=== PATIENT | female | born 1990 | race Native Hawaiian/Other Pacific Islander ===

== ENCOUNTER 2016-12-03 11:15 | Inpatient (IN) | payer OTHER ==
--- NOTE | 2016-12-03 12:00 | C.PDOC ---
History Of Present Illness 26-year-old female, presents to the emergency department with complaints fever, pus draining wound of left upper arm that started as a pimple-like lesion, on , which opened, and became red and painful. Patient seen by PMD, on , who prescribed Amoxicillin which she has been taking without relief. States she developed a fever of 102(T-Max) three days ago. This morning, Temperature was 100.4F. Pt takes Motrin for pain and fever. Denies any nausea/vomiting, headaches, chills, shortness of breath, back pain, or any other associated symptoms. No other complaints at this time. Time Seen by Provider: 12/03/16 11:37 Chief Complaint (Nursing): Wound Check History Per: Patient History/Exam Limitations: no limitations Onset/Duration Of Symptoms: Days Ago Current Symptoms Are (Timing): Still Present Past Medical History Reviewed: Historical Data, Nursing Documentation, Vital Signs Vital Signs: Last Vital Signs Temp 98.8 F 12/03/16 17:39 Pulse 91 H 12/03/16 17:39 Resp 18 12/03/16 17:39 BP 124/79 12/03/16 17:39 Pulse Ox 100 12/03/16 18:04 Family History: States: No Known Family Hx Other Family History: non-contributory - Social History Hx Alcohol Use: No Hx Substance Use: No - Immunization History Hx Tetanus Toxoid Vaccination: No Hx Influenza Vaccination: No Hx Pneumococcal Vaccination: No Review Of Systems Except As Marked, All Systems Reviewed And Found Negative. Constitutional: Positive for: Fever Respiratory: Negative for: Shortness of Breath Musculoskeletal: Positive for: Arm Pain Neurological: Negative for: Weakness Physical Exam - Physical Exam Appears: Non-toxic, No Acute Distress Skin: Warm, Dry, No Rash, Other (Left upper arm: 5x6cm carbuncle w/ central opening; surrounding erythema, and warmth.) Head: Atraumatic, Normacephalic Neck: Normal ROM Chest: Symmetrical Cardiovascular: Rhythm Regular Respiratory: Normal Breath Sounds, No Accessory Muscle Use Gastrointestinal/Abdominal: Normal Exam Extremity: Normal ROM Neurological/Psych: Oriented x3 ED Course And Treatment - Laboratory Results Result Diagrams: 12/03/16 13:04 12/03/16 13:04 Lab Interpretation: Abnormal (thrombocytosis; lft elevation) O2 Sat by Pulse Oximetry: 100 Pulse Ox Interpretation: Normal Medical Decision Making Medical Decision Making: PROCEDURE: INCISION & DRAINAGE Performed by the emergency provider Indication: Abscess Location: Left upper arm Preparation: The area was prepped and draped in the usual sterile fashion and was cleansed with [place]. Local infiltration of Lidocaine 1% with Epi was used for anesthesia. Procedure: The most fluctuant portion of the abscess was incised with a #11 scalpel. Significant amount of pus was obtained. A dressing was applied by the RN Post-Procedure: On exam the abscess is notably less fluctuant. The patient tolerated the procedure well, and there were no complications. Cultured: YES Disposition Counseled Patient/Family Regarding: Studies Performed, Diagnosis - Disposition Disposition: HOSPITALIZED Disposition Time: 14:19 Condition: STABLE - POA Present On Arrival: None - Clinical Impression Clinical Impression: Carbuncle, Cellulitis, LFT elevation, Thrombocytosis - Scribe Statement The provider has reviewed the documentation as recorded by the Scribe (Mauro Yao) All medical record entries made by the Scribe were at my direction and personally dictated by me. I have reviewed the chart and agree that the record accurately reflects my personal performance of the history, physical exam, medical decision making, and the department course for this patient. I have also personally directed, reviewed, and agree with the discharge instructions and disposition. Decision To Admit - Pt Status Changed To: Hospital Disposition Of: Inpatient - Admit Certification Admit to Inpatient:: After my assessment, the patient will require hospitalization for at least two midnights. This is because of the severity of symptoms shown, intensity of services needed, and/or the medical risk in this patient being treated as an outpatient. - InPatient: Physician Admission Certification: I certify that this patient requires 2 or more midnights of care for the following reason:: FAILED ABX AT HOME FOR 1 WEEK , FEVER AT HOME, WORSENING SYMPTOMS - . Bed Request Type: Regular Admitting Physician: Jona Loaiza Patient Diagnosis: Carbuncle, Cellulitis, LFT elevation, Thrombocytosis
[2016-12-03 13:09] LABS: BASO # 0.1 K/uL (0.0-0.2); EOS # 0.2 K/uL (0.0-0.7); EOS % 1.6 % (0.0-4.0); LYMPH # 2.5 K/uL (1.0-4.3); LYMPH % 25.2 % (20.0-40.0); MEAN CELL VOLUME 88.4 fL (81.0-99.0); MEAN CORPUSCULAR HGB CONC 33.9 g/dL (33.0-37.0); MEAN PLATELET VOLUME 7.5 fL (7.2-11.7); MONO # 0.7 K/uL (0.0-0.8); MONO % 7.3 % (0.0-10.0); RED CELL DISTRIBUTION WIDTH 12.9 % (11.5-14.5); WHITE BLOOD COUNT 9.9 K/uL (4.8-10.8)
[2016-12-03 13:16] LABS: CHLORIDE 100 mmol/L (98-107); POTASSIUM 4.1 mmol/L (3.6-5.2); SODIUM 142 mmol/L (132-148)
[2016-12-03 13:18] LABS: AST/SGOT 46 U/L (14-36); BILIRUBIN,TOTAL 0.6 mg/dL (0.2-1.3); CARBON DIOXIDE 26 mmol/L (22-30); GFR AFRICAN-AMERICAN > 60
[2016-12-03 13:19] LABS: ALKALINE PHOSPHATASE 76 U/L (38-126); ALT/SGPT 70 U/L (9-52); BLOOD UREA NITROGEN 12 mg/dL (7-17); CALCIUM 10.3 mg/dl (8.6-10.4); GLUCOSE,RANDOM 102 mg/dL (65-105); TOTAL PROTEIN 9.2 g/dL (6.3-8.3)
--- NOTE | 2016-12-03 15:34 | CP.PCM.HP ---
<Nasim Hyman - Last Filed: 12/03/16 16:59> History of Present Illness - History of Present Illness History of Present Illness: " Infected pimple" HPI: Patient is a 26 year old female with no significant medical history is presents to the ED with worsening pain in her left arm for a infected pimple. She was seen by a clinic physician in [place] who prescribed her Augmentin last Sunday for an infected pimple after she popped it. She noticed that her pain worsened and there was more puss and drainage from the wound over the past several days. She came here because she said the pain was unbearable and Tylenol and Motrin was no longer effective. She was also complaining of fever the past week with the highest of 102 which she measured at home. She also say she has some nausea and 1-2 episodes of vomiting after she brushed her teeth and also a loss of appetite but no abdominal pain. She denies changes in vision , hearing, chest pain, palpitations, shortness of breath, coughing wheezing, chest tightness, dysuria, diarrhea, heart burn, depression, anxiety, fatigue, numbness tingling, muscle weakness, joint pain or swelling. PMH: see above PSH: denies FH: denies SH: Lives with , denies smoking, etoh use, or illicit druge use, is unemployed PMD: none Allergies: NKDA Present on Admission - Present on Admission Any Indicators Present on Admission: No History of DVT/PE: No History of Uncontrolled Diabetes: No Urinary Catheter: No Decubitus Ulcer Present: No Review of Systems - Review of Systems All systems: reviewed and no additional remarkable complaints except - Constitutional Constitutional: Chills, Fever. absent: Weakness - EENT Ears: absent: Dizziness - Cardiovascular Cardiovascular: absent: Chest Pain, Edema, Palpitations, Radiating Pain - Respiratory Respiratory: absent: Cough, Dyspnea, Wheezing - Gastrointestinal Gastrointestinal: Nausea, Vomiting. absent: Abdominal Pain, Constipation, Diarrhea - Genitourinary Genitourinary: absent: Dysuria - Reproductive: Female Reproductive:Female: Light Menses - Menstruation Menstruation: Light Menses - Musculoskeletal Musculoskeletal: absent: Numbness, Tingling - Integumentary Integumentary: Skin Pain Additional comments: purulent discharge - Psychiatric Psychiatric: absent: Anxiety - Endocrine Endocrine: absent: Fatigue, Palpitations - Hematologic/Lymphatic Hematologic: absent: Easy Bleeding, Easy Bruising Past Patient History - Infectious Disease Hx of Infectious Diseases: None - Past Social History Smoking Status: Never Smoked - PSYCHIATRIC Hx Substance Use: No Meds Allergies/Adverse Reactions: Allergies Allergy/AdvReac Type Severity Reaction Status Date / Time No Known Allergies Allergy Unverified 12/03/16 11:20 Physical Exam - Constitutional Appears: Non-toxic, No Acute Distress - Head Exam Head Exam: NORMAL INSPECTION - Eye Exam Eye Exam: Normal appearance, PERRL. absent: Nystagmus, Scleral icterus Pupil Exam: NORMAL ACCOMODATION - ENT Exam ENT Exam: Normal Exam - Respiratory Exam Respiratory Exam: Clear to Auscultation Bilateral. absent: Rales, Rhonchi, Wheezes - Cardiovascular Exam Cardiovascular Exam: REGULAR RHYTHM, RRR, +S1, +S2. absent: Gallop, Rubs - GI/Abdominal Exam GI & Abdominal Exam: Normal Bowel Sounds, Soft. absent: Guarding, Rebound, Tenderness - Extremities Exam Extremities exam: Positive for: normal inspection. Negative for: calf tenderness, pedal edema Additional comments: no swelling distal to infected site, she has good pulses, and no deficit in sensation. - Back Exam Back exam: NORMAL INSPECTION - Neurological Exam Neurological exam: Alert - Psychiatric Exam Psychiatric exam: Normal Affect, Normal Mood - Skin Skin Exam: Dry, Normal Color Additional comments: open wound over the left arm with a dressing over it. Results - Vital Signs Recent Vital Signs: Last Vital Signs Temp 99.4 F 12/03/16 11:17 Pulse 110 H 12/03/16 11:17 Resp 18 12/03/16 11:17 BP 135/90 12/03/16 11:17 Pulse Ox 100 12/03/16 14:19 - Labs Result Diagrams: 12/03/16 13:04 12/03/16 13:04 Assessment & Plan (1) Cellulitis Assessment and Plan: She is admitted for infection that failed outpatient antibiotics. She also had an I&D done in the ED as well as receive IV Vancomycin. We will admit her to regular floor, follow morning cbc,cmp,mag, phos, hepatitis profile, urine preg, and UA. Will also need to follow up wound culture and blood culture. 1 gm of Van daily. X:ray of the left arm to rule out foreign body and also a abdominal ultrasound because of elevated LFTs. Status: Acute (2) Elevated LFTs Assessment and Plan: Hepatitis panel and abdominal ultrasound. Status: Acute (3) Thrombophilia Assessment and Plan: Platelete count is well above 600, repeat cbc in the am. Status: Acute (4) Prophylactic measure Assessment and Plan: Heparin 5000 units SC q12h, SCDS Pepcid 20mg bid. Status: Acute <Jona Loaiza M - Last Filed: 12/03/16 17:46> Results - Vital Signs Recent Vital Signs: Last Vital Signs Temp 98.8 F 12/03/16 17:39 Pulse 91 H 12/03/16 17:39 Resp 18 12/03/16 17:39 BP 124/79 12/03/16 17:39 Pulse Ox 98 12/03/16 17:39 - Labs Result Diagrams: 12/03/16 13:04 12/03/16 13:04 Attending/Attestation - Attestation I have personally seen and examined this patient.: Yes I have fully participated in the care of the patient.: Yes I have reviewed all pertinent clinical information: Yes Notes (Text): 12/03/16 17:45 Patient was seen and examined at bedside with the resident We will start the patient on IV antibiotics for cellulitis with abscess of the arm Patient is currently on vancomycin and follow cultures Patient also has elevated the transaminases We will follow-up hepatitis profile and a liver ultrasound I discussed the plan of care with the resident and agree with the above assessment and plan by the resident.
--- NOTE | 2016-12-03 17:05 | RAD ---
Left humerus two views History: Soft tissue injury. Comparison: None available. Findings: Soft tissue swelling and reticulation seen within the lateral soft tissues at the level of the mid humerus. Mild increased radiopaque density at that level may be related to external bandage. Clinical correlation. No discrete radiopaque density noted to suggest for foreign body; however, evaluation is somewhat limited as there are some probable external bandages at that level. Clinical correlation. Left humerus demonstrates some minimal inferior subluxation of the humeral head in relationship to the bony glenoid which may be related to patient positioning. No evidence of acute displaced fracture. Impression: Soft tissue swelling and reticulation seen within the lateral soft tissues at the level of the mid humerus. Mild increased radiopaque density at that level may be related to external bandage. Clinical correlation. No discrete radiopaque density noted to suggest for foreign body; however, evaluation is somewhat limited as there are some probable external bandages at that level. Clinical correlation. Left humerus demonstrates some minimal inferior subluxation of the humeral head in relationship to the bony glenoid which may be related to patient positioning. No evidence of acute displaced fracture. Repeat study may be helpful if clinically indicated.
[2016-12-03 17:45] LABS: RBC URINE 4 /hpf (0-3); URINE BACTERIA RARE (<OCC); URINE BILIRUBIN NEGATIVE (NEGATIVE); URINE BLOOD NEGATIVE (NEGATIVE); URINE COLOR Yellow (YELLOW); URINE GLUCOSE (UA) NORMAL (Normal); URINE KETONE NEGATIVE (NEGATIVE); URINE LEUKOCYTE ESTERASE NEG Leu/uL (Negative); URINE PROTEIN NEGATIVE (NEGATIVE); URINE UROBILINOGEN NORMAL mg/dL (0.2-1.0); WBC URINE 3 /hpf (0-5)
[2016-12-04 06:15] LABS: BASO # 0.1 K/uL (0.0-0.2); BASO % 1.2 % (0.0-2.0); EOS # 0.2 K/uL (0.0-0.7); HEMATOCRIT 38.3 % (34.0-47.0); LYMPH # 3.3 K/uL (1.0-4.3); LYMPH % 31.2 % (20.0-40.0); MEAN CELL VOLUME 88.1 fL (81.0-99.0); MEAN CORPUSCULAR HEMOGLOBIN 29.9 pg (27.0-31.0); MEAN CORPUSCULAR HGB CONC 33.9 g/dL (33.0-37.0); MEAN PLATELET VOLUME 7.3 fL (7.2-11.7); MONO # 0.8 K/uL (0.0-0.8); MONO % 7.6 % (0.0-10.0); RED CELL DISTRIBUTION WIDTH 13.1 % (11.5-14.5); WHITE BLOOD COUNT 10.5 K/uL (4.8-10.8)
[2016-12-04 06:36] LABS: CHLORIDE 98 mmol/L (98-107); SODIUM 138 mmol/L (132-148)
[2016-12-04 06:38] LABS: ALB/GLOB RATIO 1.1 (1.0-2.1); ALKALINE PHOSPHATASE 75 U/L (38-126); AST/SGOT 47 U/L (14-36); BILIRUBIN,TOTAL 0.6 mg/dL (0.2-1.3); BLOOD UREA NITROGEN 14 mg/dL (7-17); CARBON DIOXIDE 26 mmol/L (22-30); GFR AFRICAN-AMERICAN > 60; TOTAL PROTEIN 8.2 g/dL (6.3-8.3)
[2016-12-04 06:39] LABS: ALT/SGPT 70 U/L (9-52); CALCIUM 9.5 mg/dl (8.6-10.4); GLUCOSE,RANDOM 105 mg/dL (65-105); MAGNESIUM 2.4 mg/dL (1.6-2.3); PHOSPHOROUS 4.9 mg/dL (2.5-4.5)
--- NOTE | 2016-12-04 10:33 | US ---
HISTORY: Elevated LFTs COMPARISON: None. TECHNIQUE: Grayscale imaging was performed. FINDINGS: LIVER: Measures 14.3 cm in length. Normal echogenicity of the liver parenchyma. No mass. No intrahepatic bile duct dilatation. GALLBLADDER: There are no gallstones. There are small polypoid nonmobile echogenic lesions along the gallbladder wall, the largest measures 6 mm. COMMON BILE DUCT: Measures 2.2 mm. No stones. No dilatation. PANCREAS: Unremarkable as visualized. No mass. No ductal dilatation. RIGHT KIDNEY: Measures 13.7 cm in length. Normal echogenicity. No calculus, mass, or hydronephrosis. AORTA: No aneurysmal dilatation. IVC: Unremarkable. OTHER FINDINGS: None . IMPRESSION: 1. Diffuse increased echogenicity in the liver may reflect hepatic steatosis however parenchymal infectious/ inflammatory etiologies cannot be entirely excluded. Clinical and laboratory correlation is advised. 2. Gallbladder polyps.
--- NOTE | 2016-12-04 11:54 | CP.PCM.PN ---
Subjective - Date & Time of Evaluation Date of Evaluation: 12/04/16 Time of Evaluation: 11:51 - Subjective Subjective: Patient seen and evaluated at bedside. Patient states that her pain and range of motion is improving. Her lesion continues to drain bloody and purulent discharge. The patient is going for an ultrasound today. She states that her appetite has been normal and she is tolerating po diet. Patient states that she has no problems urinating or passing bowel movements. The patient denies abdominal pain, diarrhea/constipation, fever/chills, chest pain, and shortness of breath. Objective - Vital Signs/Intake and Output Vital Signs (last 24 hours): Temp Pulse Resp BP Pulse Ox 98.1 F 85 20 127/85 98 12/04/16 08:17 12/04/16 08:17 12/04/16 08:17 12/04/16 08:17 12/04/16 08:17 Intake and Output: 12/04/16 12/04/16 06:59 18:59 Intake Total 540 Balance 540 - Medications Medications: Current Medications Famotidine (Pepcid) 20 mg PO BID [facility] Last Admin: 12/04/16 09:20 Dose: 20 mg Heparin Sodium (Porcine) (Heparin) 5,000 units SC Q12 [facility] Last Admin: 12/04/16 09:20 Dose: 5,000 units Vancomycin/Sodium Chloride (Vancocin) 1 gm in 200 mls @ 166.7 mls/hr IVPB Q24H [facility] Stop: 12/09/16 14:01 Ibuprofen (Motrin Tab) 400 mg PO Q6 PRN PRN Reason: Pain, severe (8-10) Ondansetron HCl (Zofran Inj) 4 mg IVP Q6H PRN PRN Reason: Nausea/Vomiting - Labs Labs: 12/04/16 06:03 12/04/16 06:03 - Constitutional Appears: Non-toxic, No Acute Distress - Head Exam Head Exam: ATRAUMATIC, NORMAL INSPECTION, NORMOCEPHALIC - Eye Exam Eye Exam: EOMI, Normal appearance, PERRL - ENT Exam ENT Exam: Mucous Membranes Moist - Respiratory Exam Respiratory Exam: Clear to Ausculation Bilateral, NORMAL BREATHING PATTERN - Cardiovascular Exam Cardiovascular Exam: +S1, +S2. absent: Tachycardia, Murmur - GI/Abdominal Exam GI & Abdominal Exam: Soft, Normal Bowel Sounds. absent: Firm, Guarding, Tenderness - Extremities Exam Extremities Exam: Full ROM, Normal Inspection. absent: Pedal Edema, Tenderness - Neurological Exam Neurological Exam: Alert, Awake, Oriented x3 - Psychiatric Exam Psychiatric exam: Normal Affect, Normal Mood - Skin Additional comments: 3cm oval indurated area of skin with central opening and surrounding erythema draining bloody/purulent discharge. Assessment and Plan - Assessment and Plan (Free Text) Assessment: (1) Cellulitis Assessment and Plan: I&D performed in ED Continue Vancomycin 1 gm IV daily. No leukocytosis, afebrile follow up wound culture and blood culture. Wound gram stain : moderate PMN WBCs and few gram positive cocci in clusters. X-ray of left humerus: Soft tissue swelling and reticulation seen within the lateral soft tissues at the level of the mid humerus. Mild increased radiopaque density at that level may be related to external bandage. No discrete radiopaque density noted to suggest for foreign body; however, evaluation is somewhat limited as there are some probable external bandages at that level. Status: Acute (2) Elevated LFTs Assessment and Plan: AST/ALT: 47/70 Hepatitis panel negative Abdominal ultrasound: 1. Diffuse increased echogenicity in the liver may reflect hepatic steatosis however parenchymal infectious/ inflammatory etiologies cannot be entirely excluded. Clinical and laboratory correlation is advised. 2. Gallbladder polyps. Status: Acute (3) Thrombophilia Assessment and Plan: Platelet count continues to be elevated, 634. Monitor Status: Acute (4) Prophylactic measure Assessment and Plan: Heparin 5000 units SC q12h, SCDS Pepcid 20mg bid.
[2016-12-04] MEDS: Vancomycin 1 gm/NS 200 ml 1 GM/200 ML BAG IVPB SCH (13:54)
[2016-12-05 06:27] LABS: BASO # 0.1 K/uL (0.0-0.2); BASO % 0.7 % (0.0-2.0); EOS # 0.2 K/uL (0.0-0.7); EOS % 2.3 % (0.0-4.0); HEMATOCRIT 36.9 % (34.0-47.0); LYMPH % 36.7 % (20.0-40.0); MEAN CELL VOLUME 88.5 fL (81.0-99.0); MEAN CORPUSCULAR HEMOGLOBIN 29.8 pg (27.0-31.0); MEAN CORPUSCULAR HGB CONC 33.7 g/dL (33.0-37.0); MEAN PLATELET VOLUME 7.5 fL (7.2-11.7); MONO # 0.7 K/uL (0.0-0.8); MONO % 6.2 % (0.0-10.0); RED CELL DISTRIBUTION WIDTH 13.1 % (11.5-14.5); WHITE BLOOD COUNT 10.9 K/uL (4.8-10.8)
[2016-12-05 06:57] LABS: CHLORIDE 98 mmol/L (98-107)
[2016-12-05 06:58] LABS: SODIUM 138 mmol/L (132-148)
[2016-12-05 07:00] LABS: AST/SGOT 46 U/L (14-36); BILIRUBIN,TOTAL 0.5 mg/dL (0.2-1.3); BLOOD UREA NITROGEN 13 mg/dL (7-17); CARBON DIOXIDE 27 mmol/L (22-30); GFR AFRICAN-AMERICAN > 60
[2016-12-05 07:01] LABS: ALKALINE PHOSPHATASE 77 U/L (38-126); ALT/SGPT 69 U/L (9-52); CALCIUM 9.3 mg/dl (8.6-10.4); GLUCOSE,RANDOM 106 mg/dL (65-105); MAGNESIUM 2.4 mg/dL (1.6-2.3)
--- NOTE | 2016-12-05 11:44 | CP.PCM.PN ---
Subjective - Date & Time of Evaluation Date of Evaluation: 12/05/16 Time of Evaluation: 11:42 - Subjective Subjective: Patient seen and examined at bedside. She states that she slept well last night and that she feels comfortable. She denies any acute complaints. Her pain is being controlled well and she has full range of motion of her shoulder joint. The lesion is still draining bloody, purulent fluid and the dressing was changed at bedside. Patient denies fever/chills, night sweats, chest pain, shortness of breath, cough, abdominal pain, nausea, vomiting, diarrhea, constipation. She is tolerating po diet well. Objective - Vital Signs/Intake and Output Vital Signs (last 24 hours): Temp Pulse Resp BP Pulse Ox 98.2 F 62 20 134/83 98 12/05/16 08:00 12/05/16 08:00 12/05/16 08:00 12/05/16 08:00 12/05/16 08:00 Intake and Output: 12/05/16 12/05/16 06:59 18:59 Intake Total 590 Balance 590 - Medications Medications: Current Medications Famotidine (Pepcid) 20 mg PO BID [facility] Last Admin: 12/05/16 09:28 Dose: 20 mg Heparin Sodium (Porcine) (Heparin) 5,000 units SC Q12 [facility] Last Admin: 12/05/16 09:28 Dose: 5,000 units Vancomycin/Sodium Chloride (Vancocin) 1 gm in 200 mls @ 166.7 mls/hr IVPB Q24H [facility] Stop: 12/09/16 14:01 Last Admin: 12/04/16 13:54 Dose: 166.7 mls/hr Ibuprofen (Motrin Tab) 400 mg PO Q6 PRN PRN Reason: Pain, severe (8-10) Ondansetron HCl (Zofran Inj) 4 mg IVP Q6H PRN PRN Reason: Nausea/Vomiting - Labs Labs: 12/05/16 06:18 12/05/16 06:18 - Constitutional Appears: Non-toxic, No Acute Distress - Head Exam Head Exam: ATRAUMATIC, NORMAL INSPECTION, NORMOCEPHALIC - Eye Exam Eye Exam: EOMI, Normal appearance, PERRL - ENT Exam ENT Exam: Mucous Membranes Moist, Normal Exam - Neck Exam Neck Exam: Full ROM, Normal Inspection - Respiratory Exam Respiratory Exam: Clear to Ausculation Bilateral, NORMAL BREATHING PATTERN. absent: Rales, Rhonchi, Wheezes - Cardiovascular Exam Cardiovascular Exam: +S1, +S2. absent: Bradycardia, Tachycardia - GI/Abdominal Exam GI & Abdominal Exam: Soft, Normal Bowel Sounds. absent: Distended, Firm, Tenderness - Extremities Exam Extremities Exam: Full ROM. absent: Normal Inspection, Tenderness Additional comments: please see skin exam - Neurological Exam Neurological Exam: Alert, Awake, Oriented x3 - Psychiatric Exam Psychiatric exam: Normal Affect, Normal Mood - Skin Additional comments: 3cm oval affected area of skin with central opening and surrounding erythema draining bloody/purulent discharge. Induration decreased significantly. Assessment and Plan - Assessment and Plan (Free Text) Assessment: (1) Cellulitis Assessment and Plan: Leukocytosis 10.9, afebruke Continue Vancomycin 1 gm IV daily. General surgery, Dr. Doran consulted for possible repeat I&D. f/u recs Wound culture L Arm: Methicillin resistant S. aureus. I&D performed in ED X-ray of left humerus: Soft tissue swelling and reticulation seen within the lateral soft tissues at the level of the mid humerus. Mild increased radiopaque density at that level may be related to external bandage. No discrete radiopaque density noted to suggest for foreign body; however, evaluation is somewhat limited as there are some probable external bandages at that level. Status: Acute (2) Elevated LFTs Assessment and Plan: AST/ALT: 47/70 Hepatitis panel negative Abdominal ultrasound: 1. Diffuse increased echogenicity in the liver may reflect hepatic steatosis however parenchymal infectious/ inflammatory etiologies cannot be entirely excluded. Clinical and laboratory correlation is advised. 2. Gallbladder polyps. Status: Acute (3) Thrombophilia Assessment and Plan: Platelet count continues to be elevated, 618 but improving Monitor Status: Acute (4) Prophylactic measure Assessment and Plan: Heparin 5000 units SC q12h, SCDS Pepcid 20mg bid.
--- NOTE | 2016-12-05 12:42 | CP.PCM.CON ---
<Kevin Chang - Last Filed: 12/05/16 12:59> History of Present Illness - History of Present Illness History of Present Illness: Surgery consult: Dr. Beaulieu Patient is a 26 year old female with no significant medical history who presented to ED on 12/03/16 with an infected pimple on her left arm. Patient states she popped the pimple 2 weeks ago and it immediately discharged purulent fluid, becoming increasingly painful. Patient was prescribed augmentin as outpatient 1 week ago, however the discharge/pain persisted and pt subsequently developed fever . I&D was done in ED and pt was started on IV vancomycin. Currently, pt states she is feeling better and has regained significant range of motion in her left arm. She denies fever, chills, nausea, vomiting, erythema , swelling, joint pain, and tenderness at wound site. PMHx: no significant medical history PSHx: denies FHx: denies Social: lives with , denies tobacco/alcohol/drug use, unemployed Review of Systems - Constitutional Constitutional: absent: Chills, Fatigue, Fever - Cardiovascular Cardiovascular: absent: Chest Pain, Palpitations - Respiratory Respiratory: absent: Cough, Dyspnea - Gastrointestinal Gastrointestinal: absent: Abdominal Pain, Nausea, Vomiting - Genitourinary Genitourinary: absent: Dysuria, Hematuria - Musculoskeletal Musculoskeletal: absent: Arthralgias, Joint Swelling, Numbness, Tingling - Integumentary Integumentary: absent: Erythema, Rash, Skin Pain, Swelling - Neurological Neurological: absent: Numbness, Tingling Past Patient History - Infectious Disease Hx of Infectious Diseases: None - Past Medical History & Family History Past Medical History?: No - Past Social History Smoking Status: Former Smoker - MUSCULOSKELETAL/RHEUMATOLOGICAL Hx Falls: No - PSYCHIATRIC Hx Substance Use: No - ANESTHESIA Hx Anesthesia: No Meds Allergies/Adverse Reactions: Allergies Allergy/AdvReac Type Severity Reaction Status Date / Time No Known Allergies Allergy Unverified 12/03/16 11:20 - Medications Medications: Current Medications Famotidine (Pepcid) 20 mg PO BID [facility] Last Admin: 12/05/16 09:28 Dose: 20 mg Heparin Sodium (Porcine) (Heparin) 5,000 units SC Q12 [facility] Last Admin: 12/05/16 09:28 Dose: 5,000 units Vancomycin/Sodium Chloride (Vancocin) 1 gm in 200 mls @ 166.7 mls/hr IVPB Q24H [facility] Stop: 12/09/16 14:01 Last Admin: 12/04/16 13:54 Dose: 166.7 mls/hr Ibuprofen (Motrin Tab) 400 mg PO Q6 PRN PRN Reason: Pain, severe (8-10) Ondansetron HCl (Zofran Inj) 4 mg IVP Q6H PRN PRN Reason: Nausea/Vomiting Physical Exam - Constitutional Appears: Well, Non-toxic, No Acute Distress - Head Exam Head Exam: ATRAUMATIC, NORMAL INSPECTION, NORMOCEPHALIC - Eye Exam Eye Exam: Normal appearance - ENT Exam ENT Exam: Mucous Membranes Moist - Respiratory Exam Respiratory Exam: NORMAL BREATHING PATTERN - GI/Abdominal Exam GI & Abdominal Exam: Soft. absent: Tenderness - Extremities Exam Extremities exam: Positive for: full ROM, normal inspection. Negative for: tenderness Additional comments: 20cc purulent fluid expressed - Neurological Exam Neurological exam: Alert, Oriented x3 - Psychiatric Exam Psychiatric exam: Normal Affect, Normal Mood - Skin Skin Exam: Dry, Normal Color Additional comments: 1 cm open wound left upper arm draining mild purulent discharge with clean dressing over it Results - Vital Signs Recent Vital Signs: Last Vital Signs Temp 98.2 F 12/05/16 08:00 Pulse 62 12/05/16 08:00 Resp 20 12/05/16 08:00 BP 134/83 12/05/16 08:00 Pulse Ox 98 12/05/16 08:00 - Labs Result Diagrams: 12/05/16 06:18 12/05/16 06:18 Labs: Laboratory Results - last 24 hr 12/04/16 12/05/16 12/05/16 21:34 06:18 06:18 WBC 10.9 H RBC 4.17 Hgb 12.5 Hct 36.9 MCV 88.5 MCH 29.8 MCHC 33.7 RDW 13.1 Plt Count 618 H MPV 7.5 Neut % (Auto) 54.1 Lymph % (Auto) 36.7 Forrest % (Auto) 6.2 Eos % (Auto) 2.3 Baso % (Auto) 0.7 Neut # 5.9 Lymph # 4.0 Forrest # 0.7 Eos # 0.2 Baso # 0.1 Sodium 138 Potassium 4.0 Chloride 98 Carbon Dioxide 27 Anion Gap 17 BUN 13 Creatinine 0.7 Est GFR ( Amer) > 60 Est GFR (Non-Af Amer) > 60 POC Glucose (mg/dL) 131 H Random Glucose 106 H Calcium 9.3 Magnesium 2.4 H Total Bilirubin 0.5 AST 46 H ALT 69 H Alkaline Phosphatase 77 Total Protein 8.0 Albumin 4.1 Globulin 3.9 Albumin/Globulin Ratio 1.0 12/05/16 12/05/16 07:39 11:13 WBC RBC Hgb Hct MCV MCH MCHC RDW Plt Count MPV Neut % (Auto) Lymph % (Auto) Forrest % (Auto) Eos % (Auto) Baso % (Auto) Neut # Lymph # Forrest # Eos # Baso # Sodium Potassium Chloride Carbon Dioxide Anion Gap BUN Creatinine Est GFR ( Amer) Est GFR (Non-Af Amer) POC Glucose (mg/dL) 98 82 Random Glucose Calcium Magnesium Total Bilirubin AST ALT Alkaline Phosphatase Total Protein Albumin Globulin Albumin/Globulin Ratio Assessment & Plan - Assessment and Plan (Free Text) Assessment: 26 year old female with left upper arm cellulitis/abscess Plan: -Wound culture positive for MRSA -Continue IV abx per primary -No additional I&D is recommended at this time - spontaneously draining -Do not apply dressing too tight or else it won't drain -d/w Dr Espinoza Chang PGY2 - Date & Time Date: 12/05/16 Time: 13:04 <Nicolas Doran - Last Filed: 12/05/16 16:34> Meds - Medications Medications: Current Medications Famotidine (Pepcid) 20 mg PO BID [facility] Last Admin: 12/05/16 09:28 Dose: 20 mg Heparin Sodium (Porcine) (Heparin) 5,000 units SC Q12 [facility] Last Admin: 12/05/16 09:28 Dose: 5,000 units Vancomycin/Sodium Chloride (Vancocin) 1 gm in 200 mls @ 166.7 mls/hr IVPB Q24H [facility] Stop: 12/09/16 14:01 Last Admin: 12/05/16 14:26 Dose: 166.7 mls/hr Ibuprofen (Motrin Tab) 400 mg PO Q6 PRN PRN Reason: Pain, severe (8-10) Ondansetron HCl (Zofran Inj) 4 mg IVP Q6H PRN PRN Reason: Nausea/Vomiting Oxycodone/Acetaminophen (Percocet 5/325 Mg Tab) 1 tab PO Q4H PRN PRN Reason: Pain, moderate (4-7) Stop: 12/08/16 16:28 Results - Vital Signs Recent Vital Signs: Last Vital Signs Temp 98.2 F 12/05/16 08:00 Pulse 62 12/05/16 08:00 Resp 20 12/05/16 08:00 BP 134/83 12/05/16 08:00 Pulse Ox 98 12/05/16 08:00 - Labs Result Diagrams: 12/05/16 06:18 12/05/16 06:18 Labs: Laboratory Results - last 24 hr 12/04/16 12/05/16 12/05/16 21:34 06:18 06:18 WBC 10.9 H RBC 4.17 Hgb 12.5 Hct 36.9 MCV 88.5 MCH 29.8 MCHC 33.7 RDW 13.1 Plt Count 618 H MPV 7.5 Neut % (Auto) 54.1 Lymph % (Auto) 36.7 Forrest % (Auto) 6.2 Eos % (Auto) 2.3 Baso % (Auto) 0.7 Neut # 5.9 Lymph # 4.0 Forrest # 0.7 Eos # 0.2 Baso # 0.1 Sodium 138 Potassium 4.0 Chloride 98 Carbon Dioxide 27 Anion Gap 17 BUN 13 Creatinine 0.7 Est GFR ( Amer) > 60 Est GFR (Non-Af Amer) > 60 POC Glucose (mg/dL) 131 H Random Glucose 106 H Calcium 9.3 Magnesium 2.4 H Total Bilirubin 0.5 AST 46 H ALT 69 H Alkaline Phosphatase 77 Total Protein 8.0 Albumin 4.1 Globulin 3.9 Albumin/Globulin Ratio 1.0 12/05/16 12/05/16 12/05/16 07:39 11:13 15:56 WBC RBC Hgb Hct MCV MCH MCHC RDW Plt Count MPV Neut % (Auto) Lymph % (Auto) Forrest % (Auto) Eos % (Auto) Baso % (Auto) Neut # Lymph # Forrest # Eos # Baso # Sodium Potassium Chloride Carbon Dioxide Anion Gap BUN Creatinine Est GFR ( Amer) Est GFR (Non-Af Amer) POC Glucose (mg/dL) 98 82 129 H Random Glucose Calcium Magnesium Total Bilirubin AST ALT Alkaline Phosphatase Total Protein Albumin Globulin Albumin/Globulin Ratio Attending/Attestation - Attestation I have personally seen and examined this patient.: Yes I have fully participated in the care of the patient.: Yes I have reviewed all pertinent clinical information: Yes Notes (Text): 12/05/16 16:32 Pt was seen and examined at bedside on 12/05/16 Agree with above note and assessment. Pt with left arm abscess I & D of Left arm at bedside C/w IV antibiotics Plan d.w pt and PMD in detail Risk and benefit explained in detail
[2016-12-05] MEDS: Vancomycin 1 gm/NS 200 ml 1 GM/200 ML BAG IVPB SCH (14:26)
[2016-12-05] MEDS ORDERED: Oxycodone/Acetaminophen 5/325 mg Tab PO PRN (16:27)
--- NOTE | 2016-12-05 17:06 | PCM.SURG1 ---
Surgeon's Initial Post Op Note - Surgeon's Notes Surgeon: Espinoza Draw Furnace Tender: Merari Pike Type of Anesthesia: Local Pre-Operative Diagnosis: left arm abscess Operative Findings: abscess left arm Post-Operative Diagnosis: left arm abscess Operation Performed: incision and drainage of left arm abscess Specimen/Specimens Removed: n/a Estimated Blood Loss: EBL {In ML}: 10 Date of Surgery/Procedure: 12/05/16 Time of Surgery/Procedure: 16:00
[2016-12-06 06:53] LABS: CHLORIDE 98 mmol/L (98-107); POTASSIUM 3.8 mmol/L (3.6-5.2); SODIUM 139 mmol/L (132-148)
[2016-12-06 06:55] LABS: ALB/GLOB RATIO 1.1 (1.0-2.1); ALKALINE PHOSPHATASE 79 U/L (38-126); AST/SGOT 47 U/L (14-36); BILIRUBIN,TOTAL 0.6 mg/dL (0.2-1.3); BLOOD UREA NITROGEN 12 mg/dL (7-17); CARBON DIOXIDE 28 mmol/L (22-30); GFR AFRICAN-AMERICAN > 60; TOTAL PROTEIN 8.2 g/dL (6.3-8.3)
[2016-12-06 06:56] LABS: ALT/SGPT 70 U/L (9-52); CALCIUM 9.6 mg/dl (8.6-10.4); GLUCOSE,RANDOM 99 mg/dL (65-105); MAGNESIUM 2.4 mg/dL (1.6-2.3)
[2016-12-06 06:57] LABS: BASO % 0.5 % (0.0-2.0); EOS # 0.2 K/uL (0.0-0.7); EOS % 2.1 % (0.0-4.0); LYMPH # 3.4 K/uL (1.0-4.3); LYMPH % 36.7 % (20.0-40.0); MEAN CORPUSCULAR HEMOGLOBIN 29.9 pg (27.0-31.0); MEAN PLATELET VOLUME 7.4 fL (7.2-11.7); MONO # 0.4 K/uL (0.0-0.8); MONO % 4.7 % (0.0-10.0); RED CELL DISTRIBUTION WIDTH 13.2 % (11.5-14.5); WHITE BLOOD COUNT 9.3 K/uL (4.8-10.8)
--- NOTE | 2016-12-06 07:56 | CP.PCM.PN ---
<Kady Santo - Last Filed: 12/06/16 12:41> Subjective - Date & Time of Evaluation Date of Evaluation: 12/06/16 Time of Evaluation: 07:53 - Subjective Subjective: Pt seen and examined at bedside. No acute events overnight per nursing. Patient tolerated bedside I&D per surgery team well yesterday and had packing changed today. She denies pain to the area but noted mild discomfort with packing change. She denies fever and chills. Patient is tolerating diet well and having normal BMs. She denies chest pain, shortness of breath, abdominal pain, nausea, vomiting, constipation and diarrhea. Objective - Vital Signs/Intake and Output Vital Signs (last 24 hours): Temp Pulse Resp BP Pulse Ox 98 F 79 18 112/73 97 12/06/16 00:00 12/06/16 00:00 12/06/16 00:00 12/06/16 00:00 12/06/16 00:00 Intake and Output: 12/06/16 12/06/16 06:59 18:59 Intake Total 300 Balance 300 - Medications Medications: Current Medications Famotidine (Pepcid) 20 mg PO BID [facility] Last Admin: 12/05/16 18:08 Dose: 20 mg Heparin Sodium (Porcine) (Heparin) 5,000 units SC Q12 [facility] Last Admin: 12/05/16 22:26 Dose: 5,000 units Vancomycin/Sodium Chloride (Vancocin) 1 gm in 200 mls @ 166.7 mls/hr IVPB Q24H [facility] Stop: 12/09/16 14:01 Last Admin: 12/05/16 14:26 Dose: 166.7 mls/hr Ibuprofen (Motrin Tab) 400 mg PO Q6 PRN PRN Reason: Pain, severe (8-10) Ondansetron HCl (Zofran Inj) 4 mg IVP Q6H PRN PRN Reason: Nausea/Vomiting Oxycodone/Acetaminophen (Percocet 5/325 Mg Tab) 1 tab PO Q4H PRN PRN Reason: Pain, moderate (4-7) Stop: 12/08/16 16:28 - Labs Labs: 12/06/16 06:24 12/06/16 06:24 - Constitutional Appears: Non-toxic, No Acute Distress - Head Exam Head Exam: ATRAUMATIC, NORMAL INSPECTION, NORMOCEPHALIC - Eye Exam Eye Exam: EOMI, Normal appearance, PERRL - ENT Exam ENT Exam: Mucous Membranes Moist, Normal Exam - Neck Exam Neck Exam: Full ROM, Normal Inspection - Respiratory Exam Respiratory Exam: Clear to Ausculation Bilateral, NORMAL BREATHING PATTERN. absent: Rales, Rhonchi, Wheezes - Cardiovascular Exam Cardiovascular Exam: +S1, +S2. absent: Bradycardia, Tachycardia, Murmur - GI/Abdominal Exam GI & Abdominal Exam: Soft, Normal Bowel Sounds. absent: Firm, Tenderness - Extremities Exam Extremities Exam: Normal Inspection, Tenderness. absent: Pedal Edema Additional comments: mild tenderness to palpation of LUE - Neurological Exam Neurological Exam: Alert, Awake, Oriented x3 - Psychiatric Exam Psychiatric exam: Normal Affect, Normal Mood - Skin Additional comments: LUE: dressing to area clean, dry, and intact. Packing in place. Assessment and Plan - Assessment and Plan (Free Text) Assessment: (1) Cellulitis Assessment and Plan: No leukocytosis, afebrile Continue Vancomycin 1 gm IV daily. General surgery, Dr. Doran consulted. Bedside I&D performed (12/05/16). Dressing c/d/i Wound culture L Arm: Methicillin resistant S. aureus. Blood cx negative I&D performed in ED X-ray of left humerus: Soft tissue swelling and reticulation seen within the lateral soft tissues at the level of the mid humerus. Mild increased radiopaque density at that level may be related to external bandage. No discrete radiopaque density noted to suggest for foreign body; however, evaluation is somewhat limited as there are some probable external bandages at that level. Status: Acute (2) Elevated LFTs Assessment and Plan: AST/ALT: 47/70 Hepatitis panel negative Abdominal ultrasound: 1. Diffuse increased echogenicity in the liver may reflect hepatic steatosis however parenchymal infectious/ inflammatory etiologies cannot be entirely excluded. Clinical and laboratory correlation is advised. 2. Gallbladder polyps. Status: Acute (3) Thrombophilia Assessment and Plan: Platelet count continues to be elevated - 658 Monitor Status: Acute (4) Prophylactic measure Assessment and Plan: Heparin 5000 units SC q12h, [facility] Pepcid 20mg bid. <Juan Prasad H - Last Filed: 12/06/16 15:52> Objective - Vital Signs/Intake and Output Vital Signs (last 24 hours): Temp Pulse Resp BP Pulse Ox 97.7 F 76 20 126/85 98 12/06/16 07:00 12/06/16 07:00 12/06/16 07:00 12/06/16 07:00 12/06/16 07:00 Intake and Output: 12/06/16 12/06/16 06:59 18:59 Intake Total 300 Balance 300 - Medications Medications: Current Medications Famotidine (Pepcid) 20 mg PO BID [facility] Last Admin: 12/06/16 10:28 Dose: 20 mg Heparin Sodium (Porcine) (Heparin) 5,000 units SC Q12 [facility] Last Admin: 12/06/16 10:28 Dose: 5,000 units Vancomycin/Sodium Chloride (Vancocin) 1 gm in 200 mls @ 166.7 mls/hr IVPB Q24H [facility] Stop: 12/09/16 14:01 Last Admin: 12/06/16 15:43 Dose: 166.7 mls/hr Ibuprofen (Motrin Tab) 400 mg PO Q6 PRN PRN Reason: Pain, severe (8-10) Ondansetron HCl (Zofran Inj) 4 mg IVP Q6H PRN PRN Reason: Nausea/Vomiting Oxycodone/Acetaminophen (Percocet 5/325 Mg Tab) 1 tab PO Q4H PRN PRN Reason: Pain, moderate (4-7) Stop: 12/08/16 16:28 - Labs Labs: 12/06/16 06:24 12/06/16 06:24 Attending/Attestation - Attestation I have personally seen and examined this patient.: Yes I have fully participated in the care of the patient.: Yes I have reviewed all pertinent clinical information, including history, physical exam and plan: Yes Notes (Text): Medical attending: Patient was seen and examined by me, agrees the above note by senior medical technologist. Patient reported the pain was controlled when we saw her. She still has some packing at this time. Otherwise reports doing ok. Continue on IV abx, as mentioned previously there was MRSA + growth from the wound. thank you Juan Prasad
[2016-12-06] MEDS: Vancomycin 1 gm/NS 200 ml 1 GM/200 ML BAG IVPB SCH (15:43)
--- NOTE | 2016-12-06 17:59 | CP.PCM.PN ---
<Rashad Pike - Last Filed: 12/06/16 17:57> Subjective - Date & Time of Evaluation Date of Evaluation: 12/06/16 Time of Evaluation: 07:10 - Subjective Subjective: SURGERY PROGRESS NOTE FOR DR. DORAN 26F seen and examined at bedside. Left arm pain is decreased and curlex is mild saturated with blood and pus. Packing changed and curlex changed this morning. Patient denies fevers. Objective - Vital Signs/Intake and Output Vital Signs (last 24 hours): Temp Pulse Resp BP Pulse Ox 98.1 F 91 H 20 115/74 96 12/06/16 16:00 12/06/16 16:00 12/06/16 16:00 12/06/16 16:00 12/06/16 16:00 Intake and Output: 12/06/16 12/06/16 06:59 18:59 Intake Total 300 Balance 300 - Medications Medications: Current Medications Famotidine (Pepcid) 20 mg PO BID [facility] Last Admin: 12/06/16 10:28 Dose: 20 mg Heparin Sodium (Porcine) (Heparin) 5,000 units SC Q12 [facility] Last Admin: 12/06/16 10:28 Dose: 5,000 units Vancomycin/Sodium Chloride (Vancocin) 1 gm in 200 mls @ 166.7 mls/hr IVPB Q24H [facility] Stop: 12/09/16 14:01 Last Admin: 12/06/16 15:43 Dose: 166.7 mls/hr Ibuprofen (Motrin Tab) 400 mg PO Q6 PRN PRN Reason: Pain, severe (8-10) Ondansetron HCl (Zofran Inj) 4 mg IVP Q6H PRN PRN Reason: Nausea/Vomiting Oxycodone/Acetaminophen (Percocet 5/325 Mg Tab) 1 tab PO Q4H PRN PRN Reason: Pain, moderate (4-7) Stop: 12/08/16 16:28 - Labs Labs: 12/06/16 06:24 12/06/16 06:24 - Constitutional Appears: Non-toxic, No Acute Distress - Respiratory Exam Respiratory Exam: Clear to Ausculation Bilateral, NORMAL BREATHING PATTERN - Cardiovascular Exam Cardiovascular Exam: REGULAR RHYTHM, +S1, +S2 - Extremities Exam Additional comments: left arm abscess packing and curlex saturated with pus and blood Assessment and Plan - Assessment and Plan (Free Text) Assessment: 26F with left arm abscess. S/P I&D POD1 - Pain control, antibiotics - patient clear from surgical standpoint Further recs discuss with Attending Donato Pike PGY1 <Nicolas Doran - Last Filed: 12/08/16 14:33> Objective - Vital Signs/Intake and Output Vital Signs (last 24 hours): Temp Pulse Resp BP Pulse Ox 97.8 F 81 20 125/85 96 12/08/16 07:54 12/08/16 07:54 12/08/16 07:54 12/08/16 07:54 12/08/16 07:54 - Medications Medications: Current Medications Clindamycin HCl (Cleocin) 300 mg PO TID [facility] Last Admin: 12/08/16 10:31 Dose: 300 mg Famotidine (Pepcid) 20 mg PO BID [facility] Last Admin: 12/08/16 10:29 Dose: 20 mg Heparin Sodium (Porcine) (Heparin) 5,000 units SC Q12 [facility] Last Admin: 12/08/16 10:29 Dose: 5,000 units Vancomycin HCl 1,200 mg/ (Sodium Chloride) 250 mls @ 166.6 mls/hr IVPB Q12H [facility] Last Admin: 12/08/16 13:07 Dose: 166.6 mls/hr Ibuprofen (Motrin Tab) 400 mg PO Q6 PRN PRN Reason: Pain, severe (8-10) Lactobacillus Acidophilus (Bacid Acidophilus) 1 cap PO BID [facility] Last Admin: 12/08/16 10:29 Dose: 1 cap Mupirocin (Bactroban 2% Nasal) 0.5 gm KIKI BID [facility] Last Admin: 12/08/16 10:31 Dose: 0.5 gm Ondansetron HCl (Zofran Inj) 4 mg IVP Q6H PRN PRN Reason: Nausea/Vomiting Oxycodone/Acetaminophen (Percocet 5/325 Mg Tab) 1 tab PO Q4H PRN PRN Reason: Pain, moderate (4-7) Stop: 12/08/16 16:28 Last Admin: 12/07/16 03:09 Dose: 1 tab - Labs Labs: 12/08/16 07:28 12/08/16 07:28 Attending/Attestation - Attestation I have personally seen and examined this patient.: Yes I have fully participated in the care of the patient.: Yes I have reviewed all pertinent clinical information, including history, physical exam and plan: Yes Notes (Text): 12/08/16 14:32 Pt was seen and examined at bedside on 12/06/16 Agree with above note and assessment
[2016-12-07 07:34] LABS: BASO # 0.1 K/uL (0.0-0.2); BASO % 0.9 % (0.0-2.0); EOS # 0.2 K/uL (0.0-0.7); EOS % 2.2 % (0.0-4.0); HEMATOCRIT 37.4 % (34.0-47.0); LYMPH # 3.4 K/uL (1.0-4.3); LYMPH % 37.1 % (20.0-40.0); MEAN CELL VOLUME 88.3 fL (81.0-99.0); MEAN CORPUSCULAR HEMOGLOBIN 29.6 pg (27.0-31.0); MEAN CORPUSCULAR HGB CONC 33.6 g/dL (33.0-37.0); MEAN PLATELET VOLUME 7.2 fL (7.2-11.7); MONO # 0.4 K/uL (0.0-0.8); MONO % 4.3 % (0.0-10.0); NRBC % 0.3 % (0.0-2.0); RED CELL DISTRIBUTION WIDTH 12.8 % (11.5-14.5); WHITE BLOOD COUNT 9.1 K/uL (4.8-10.8)
--- NOTE | 2016-12-07 07:38 | CP.PCM.PN ---
<Kady Santo - Last Filed: 12/07/16 13:57> Subjective - Date & Time of Evaluation Date of Evaluation: 12/07/16 Time of Evaluation: 07:37 - Subjective Subjective: Patient seen and examined at bedside. Patient states she is feeling well and denies pain to her left upper extremity. She also denies fever and chills. Patient states her dressing was not changed since last morning. Dressing change was performed at bedside and she tolerated well. Patient denies other symptoms including chest pain, SOB, abdominal pain, nausea/vomiting, diarrhea, constipation, dysuria and increased urinary frequency. Objective - Vital Signs/Intake and Output Vital Signs (last 24 hours): Temp Pulse Resp BP Pulse Ox 97.8 F 78 18 116/78 98 12/06/16 23:30 12/06/16 23:30 12/06/16 23:30 12/06/16 23:30 12/06/16 23:30 - Medications Medications: Current Medications Famotidine (Pepcid) 20 mg PO BID [facility] Last Admin: 12/06/16 18:35 Dose: 20 mg Vancomycin HCl 1,200 mg/ (Sodium Chloride) 250 mls @ 166.6 mls/hr IVPB Q12H [facility] Last Admin: 12/07/16 02:58 Dose: 166.6 mls/hr Ibuprofen (Motrin Tab) 400 mg PO Q6 PRN PRN Reason: Pain, severe (8-10) Ondansetron HCl (Zofran Inj) 4 mg IVP Q6H PRN PRN Reason: Nausea/Vomiting Oxycodone/Acetaminophen (Percocet 5/325 Mg Tab) 1 tab PO Q4H PRN PRN Reason: Pain, moderate (4-7) Stop: 12/08/16 16:28 Last Admin: 12/07/16 03:09 Dose: 1 tab - Labs Labs: 12/07/16 07:20 12/06/16 06:24 - Constitutional Appears: Non-toxic, No Acute Distress - Head Exam Head Exam: ATRAUMATIC, NORMAL INSPECTION, NORMOCEPHALIC - Eye Exam Eye Exam: EOMI, Normal appearance - ENT Exam ENT Exam: Mucous Membranes Moist - Respiratory Exam Respiratory Exam: Clear to Ausculation Bilateral, NORMAL BREATHING PATTERN. absent: Rales, Rhonchi, Wheezes - Cardiovascular Exam Cardiovascular Exam: +S1, +S2. absent: Bradycardia, Tachycardia - GI/Abdominal Exam GI & Abdominal Exam: Soft, Normal Bowel Sounds. absent: Distended, Tenderness - Extremities Exam Extremities Exam: Full ROM. absent: Pedal Edema, Tenderness Additional comments: LUE: central opening at side of I&D with packing noted, minimal purulent discharge with surrounding erythema and improving induration. Slightly tender to palpation. - Back Exam Back Exam: NORMAL INSPECTION - Neurological Exam Neurological Exam: Alert, Awake, Oriented x3 Assessment and Plan - Assessment and Plan (Free Text) Assessment: (1) Cellulitis Assessment and Plan: No leukocytosis, afebrile Vancomycin increased to 1200 mg IVPB Q12h per ID, Dr. Serrato. ID, Dr. Serrato, consulted. Plans to evaluate patient today. Patient may be able to be discharged on oral Clindamycin. General surgery, Dr. Doran consulted. Bedside I&D performed (12/05/16). Dressing c/d/i Wound culture L Arm: Methicillin resistant S. aureus. Blood cx negative I&D performed in ED X-ray of left humerus: Soft tissue swelling and reticulation seen within the lateral soft tissues at the level of the mid humerus. Mild increased radiopaque density at that level may be related to external bandage. No discrete radiopaque density noted to suggest for foreign body; however, evaluation is somewhat limited as there are some probable external bandages at that level. Status: Acute (2) Elevated LFTs Assessment and Plan: AST/ALT: 43/68 Hepatitis panel negative Abdominal ultrasound: 1. Diffuse increased echogenicity in the liver may reflect hepatic steatosis however parenchymal infectious/ inflammatory etiologies cannot be entirely excluded. Clinical and laboratory correlation is advised. 2. Gallbladder polyps. Monitor Status: Acute (3) Thrombocytosis Assessment and Plan: May be secondary to infection Platelet count 598 Monitor Status: Acute (4) Prophylactic measure Assessment and Plan: Heparin 5000 units SC q12h, SCDS Pepcid 20mg bid. <Juan Prasad - Last Filed: 12/07/16 15:47> Objective - Vital Signs/Intake and Output Vital Signs (last 24 hours): Temp Pulse Resp BP Pulse Ox 98 F 87 20 123/74 95 12/07/16 15:33 12/07/16 15:33 12/07/16 15:33 12/07/16 15:33 12/07/16 15:33 - Medications Medications: Current Medications Clindamycin HCl (Cleocin) 300 mg PO TID [facility] Famotidine (Pepcid) 20 mg PO BID [facility] Last Admin: 12/07/16 10:44 Dose: 20 mg Heparin Sodium (Porcine) (Heparin) 5,000 units SC Q12 [facility] Vancomycin HCl 1,200 mg/ (Sodium Chloride) 250 mls @ 166.6 mls/hr IVPB Q12H [facility] Last Admin: 12/07/16 13:42 Dose: 166.6 mls/hr Ibuprofen (Motrin Tab) 400 mg PO Q6 PRN PRN Reason: Pain, severe (8-10) Lactobacillus Acidophilus (Bacid Acidophilus) 1 cap PO BID [facility] Mupirocin (Bactroban 2% Nasal) 0.5 gm KIKI BID [facility] Ondansetron HCl (Zofran Inj) 4 mg IVP Q6H PRN PRN Reason: Nausea/Vomiting Oxycodone/Acetaminophen (Percocet 5/325 Mg Tab) 1 tab PO Q4H PRN PRN Reason: Pain, moderate (4-7) Stop: 12/08/16 16:28 Last Admin: 12/07/16 03:09 Dose: 1 tab - Labs Labs: 12/07/16 07:20 12/07/16 07:20 Attending/Attestation - Attestation I have personally seen and examined this patient.: Yes I have fully participated in the care of the patient.: Yes I have reviewed all pertinent clinical information, including history, physical exam and plan: Yes Notes (Text): Medical attending: Patient was seen and examined by me, agrees the above note by medical dosimetrist. The patient reported feeling okay, she did not have any fevers or chills. She had her wound packing changed again earlier today. She did not report any pain when we came and saw her. Her white blood cell count is stable. She continues to receive IV biotics Hopefully will be would discharge the patient relatively soon Thank you very much, Juan Prasad
[2016-12-07 07:41] LABS: CHLORIDE 99 mmol/L (98-107)
[2016-12-07 07:42] LABS: POTASSIUM 4.1 mmol/L (3.6-5.2); SODIUM 138 mmol/L (132-148)
[2016-12-07 07:44] LABS: ALB/GLOB RATIO 1.1 (1.0-2.1); AST/SGOT 43 U/L (14-36); BILIRUBIN,TOTAL 0.5 mg/dL (0.2-1.3); BLOOD UREA NITROGEN 12 mg/dL (7-17); CARBON DIOXIDE 29 mmol/L (22-30); GFR AFRICAN-AMERICAN > 60; TOTAL PROTEIN 7.8 g/dL (6.3-8.3)
[2016-12-07 07:45] LABS: ALKALINE PHOSPHATASE 67 U/L (38-126); ALT/SGPT 68 U/L (9-52); CALCIUM 9.5 mg/dl (8.6-10.4); GLUCOSE,RANDOM 100 mg/dL (65-105); MAGNESIUM 2.3 mg/dL (1.6-2.3)
[2016-12-07 08:22] VITALS: RESP 20
--- NOTE | 2016-12-07 14:08 | CP.PCM.CON ---
History of Present Illness - History of Present Illness History of Present Illness: dictated Past Patient History - Infectious Disease Hx of Infectious Diseases: None - Past Medical History & Family History Past Medical History?: No - Past Social History Smoking Status: Former Smoker - MUSCULOSKELETAL/RHEUMATOLOGICAL Hx Falls: No - PSYCHIATRIC Hx Substance Use: No - ANESTHESIA Hx Anesthesia: No Meds Allergies/Adverse Reactions: Allergies Allergy/AdvReac Type Severity Reaction Status Date / Time No Known Allergies Allergy Unverified 12/03/16 11:20 - Medications Medications: Current Medications Famotidine (Pepcid) 20 mg PO BID [facility] Last Admin: 12/07/16 10:44 Dose: 20 mg Vancomycin HCl 1,200 mg/ (Sodium Chloride) 250 mls @ 166.6 mls/hr IVPB Q12H [facility] Last Admin: 12/07/16 13:42 Dose: 166.6 mls/hr Ibuprofen (Motrin Tab) 400 mg PO Q6 PRN PRN Reason: Pain, severe (8-10) Ondansetron HCl (Zofran Inj) 4 mg IVP Q6H PRN PRN Reason: Nausea/Vomiting Oxycodone/Acetaminophen (Percocet 5/325 Mg Tab) 1 tab PO Q4H PRN PRN Reason: Pain, moderate (4-7) Stop: 12/08/16 16:28 Last Admin: 12/07/16 03:09 Dose: 1 tab Results - Vital Signs Recent Vital Signs: Last Vital Signs Temp 97.5 F L 12/07/16 07:00 Pulse 72 12/07/16 07:00 Resp 20 12/07/16 07:00 BP 119/75 12/07/16 07:00 Pulse Ox 97 12/07/16 07:00 - Labs Result Diagrams: 12/07/16 07:20 12/07/16 07:20 Labs: Laboratory Results - last 24 hr 12/06/16 12/06/16 12/07/16 17:03 20:59 06:04 WBC RBC Hgb Hct MCV MCH MCHC RDW Plt Count MPV Neut % (Auto) Lymph % (Auto) Major % (Auto) Eos % (Auto) Baso % (Auto) Neut # Lymph # Major # Eos # Baso # Sodium Potassium Chloride Carbon Dioxide Anion Gap BUN Creatinine Est GFR ( Amer) Est GFR (Non-Af Amer) POC Glucose (mg/dL) 103 134 H 107 Random Glucose Calcium Magnesium Total Bilirubin AST ALT Alkaline Phosphatase Total Protein Albumin Globulin Albumin/Globulin Ratio 12/07/16 12/07/16 12/07/16 07:20 07:20 11:14 WBC 9.1 RBC 4.24 Hgb 12.6 Hct 37.4 MCV 88.3 MCH 29.6 MCHC 33.6 RDW 12.8 Plt Count 598 H MPV 7.2 Neut % (Auto) 55.5 Lymph % (Auto) 37.1 Major % (Auto) 4.3 Eos % (Auto) 2.2 Baso % (Auto) 0.9 Neut # 5.0 Lymph # 3.4 Major # 0.4 Eos # 0.2 Baso # 0.1 Sodium 138 Potassium 4.1 Chloride 99 Carbon Dioxide 29 Anion Gap 15 BUN 12 Creatinine 0.6 L Est GFR ( Amer) > 60 Est GFR (Non-Af Amer) > 60 POC Glucose (mg/dL) 92 Random Glucose 100 Calcium 9.5 Magnesium 2.3 Total Bilirubin 0.5 AST 43 H ALT 68 H Alkaline Phosphatase 67 Total Protein 7.8 Albumin 4.1 Globulin 3.7 Albumin/Globulin Ratio 1.1
[2016-12-07] MEDS: Lactobacillus Acidophilus 500 MU Cap PO SCH (17:54)
[2016-12-07] MEDS: Mupirocin 2% Ointment (NASAL) NAS SCH (17:54)
--- NOTE | 2016-12-07 18:03 | CON ---
DATE: 12/07/2016 REQUESTING PHYSICIAN: Dr. Loaiza HISTORY OF PRESENT ILLNESS: This patient is a 26-year-old female. She says she had a pimple on her arm and she went to see a clinic doctor who gave her Augmentin last Sunday and she popped it. She noticed pain was worsening and pus was coming out but her pain got worse. Hence, she came here. She had an I and D done by Dr. Doran and right now she is on IV vancomycin. I am asked to evaluate her as her wound has MRSA. She is feeling a little better. She denied any history of diabetes. SOCIAL HISTORY: She is . Denies any IV drug abuse or smoking or drinking. PAST SURGICAL HISTORY: No previous surgeries. PAST MEDICAL HISTORY: No previous past medical history. ALLERGIES: She is not allergic to any medicine. MEDICATIONS: She is on Pepcid, heparin, Motrin, Zofran. She is getting Percocet for pain and she is on vancomycin. She tells me her pain is getting better. REVIEW OF SYSTEMS: She denies any other complaints at this time and she is not allergic to any medic ine. PHYSICAL EXAMINATION: VITAL SIGNS: I find her temperature is 97.5, pulse 72, blood pressure 119/75, respirations are 20. HEENT: Head is atraumatic, normocephalic. NECK: Supple. LUNGS: Clear. No crackles or rales present. HEART: S1, S2 is regular. ABDOMEN: Soft, nontender, no guarding, no rigidity present. EXTREMITIES: No edema, clubbing or cyanosis. Left arm has a dressing on it at this time. Blood cultures have been negative. Wound culture came out positive for MRSA, heavy growth of MRSA an d I have explained to the patient that she has a methicillin-resistant organism and she needs to have frequent washing done and her sugar should be monitored. She can probably go home on clindamycin wh en ____ after we reevaluate it and when okayed by surgeon. So, we will add ____. This is sensitive to clindamycin and I would start the clindamycin here so that we are sure that she is not allergic to it, 300 mg t.i.d., and continue the vancomycin for now until she improves. Her labs are basically s howing high platelets 598, creatinine 0.6, and liver enzymes are elevated, need to be monitored. Minnie Serrato MD cc: [id number] TT: 12/07/2016 18:02:47 Confirmation # [id number] Dictation # [id number]
--- NOTE | 2016-12-08 07:12 | CP.PCM.PN ---
Subjective - Date & Time of Evaluation Date of Evaluation: 12/08/16 Time of Evaluation: 07:11 - Subjective Subjective: Patient seen and examined at bedside. Objective - Vital Signs/Intake and Output Vital Signs (last 24 hours): Temp Pulse Resp BP Pulse Ox 98.2 F 84 20 120/81 97 12/08/16 00:00 12/08/16 00:00 12/08/16 00:00 12/08/16 00:00 12/08/16 00:00 - Medications Medications: Current Medications Clindamycin HCl (Cleocin) 300 mg PO TID [facility] Last Admin: 12/07/16 17:54 Dose: 300 mg Famotidine (Pepcid) 20 mg PO BID [facility] Last Admin: 12/07/16 17:54 Dose: 20 mg Heparin Sodium (Porcine) (Heparin) 5,000 units SC Q12 [facility] Last Admin: 12/07/16 22:19 Dose: 5,000 units Vancomycin HCl 1,200 mg/ (Sodium Chloride) 250 mls @ 166.6 mls/hr IVPB Q12H [facility] Last Admin: 12/08/16 02:45 Dose: 166.6 mls/hr Ibuprofen (Motrin Tab) 400 mg PO Q6 PRN PRN Reason: Pain, severe (8-10) Lactobacillus Acidophilus (Bacid Acidophilus) 1 cap PO BID [facility] Last Admin: 12/07/16 17:54 Dose: 1 cap Mupirocin (Bactroban 2% Nasal) 0.5 gm KIKI BID [facility] Last Admin: 12/07/16 17:54 Dose: 0.5 gm Ondansetron HCl (Zofran Inj) 4 mg IVP Q6H PRN PRN Reason: Nausea/Vomiting Oxycodone/Acetaminophen (Percocet 5/325 Mg Tab) 1 tab PO Q4H PRN PRN Reason: Pain, moderate (4-7) Stop: 12/08/16 16:28 Last Admin: 12/07/16 03:09 Dose: 1 tab - Labs Labs: 12/07/16 07:20 12/07/16 07:20 Assessment and Plan - Assessment and Plan (Free Text) Assessment: (1) Cellulitis Assessment and Plan: No leukocytosis, afebrile Vancomycin increased to 1200 mg IVPB Q12h per ID, Dr. Serrato. ID, Dr. Serrato, consulted. Plans to evaluate patient today. Patient may be able to be discharged on oral Clindamycin. Packing to be discontinued by surgery today General surgery, Dr. Doran consulted. Bedside I&D performed (12/05/16). Dressing c/d/i Wound culture L Arm: Methicillin resistant S. aureus. Blood cx negative I&D performed in ED X-ray of left humerus: Soft tissue swelling and reticulation seen within the lateral soft tissues at the level of the mid humerus. Mild increased radiopaque density at that level may be related to external bandage. No discrete radiopaque density noted to suggest for foreign body; however, evaluation is somewhat limited as there are some probable external bandages at that level. Status: Acute (2) Elevated LFTs Assessment and Plan: AST/ALT: 43/68 Hepatitis panel negative Abdominal ultrasound: 1. Diffuse increased echogenicity in the liver may reflect hepatic steatosis however parenchymal infectious/ inflammatory etiologies cannot be entirely excluded. Clinical and laboratory correlation is advised. 2. Gallbladder polyps. Monitor Status: Acute (3) Thrombocytosis Assessment and Plan: May be secondary to infection Platelet count 598 Monitor Status: Acute (4) Prophylactic measure Assessment and Plan: Heparin 5000 units SC q12h, SCDS Pepcid 20mg bid.
[2016-12-08 07:44] LABS: BASO # 0.1 K/uL (0.0-0.2); BASO % 0.7 % (0.0-2.0); EOS # 0.2 K/uL (0.0-0.7); HEMATOCRIT 37.5 % (34.0-47.0); LYMPH # 2.7 K/uL (1.0-4.3); LYMPH % 32.5 % (20.0-40.0); MEAN CELL VOLUME 88.3 fL (81.0-99.0); MEAN CORPUSCULAR HEMOGLOBIN 29.5 pg (27.0-31.0); MEAN CORPUSCULAR HGB CONC 33.4 g/dL (33.0-37.0); MEAN PLATELET VOLUME 7.3 fL (7.2-11.7); MONO # 0.4 K/uL (0.0-0.8); MONO % 4.6 % (0.0-10.0); RED CELL DISTRIBUTION WIDTH 12.9 % (11.5-14.5); WHITE BLOOD COUNT 8.5 K/uL (4.8-10.8)
[2016-12-08 07:53] LABS: CHLORIDE 103 mmol/L (98-107); POTASSIUM 4.3 mmol/L (3.6-5.2); SODIUM 141 mmol/L (132-148)
[2016-12-08 07:56] LABS: ALB/GLOB RATIO 1.1 (1.0-2.1); ALKALINE PHOSPHATASE 70 U/L (38-126); AST/SGOT 69 U/L (14-36); BILIRUBIN,TOTAL 0.6 mg/dL (0.2-1.3); BLOOD UREA NITROGEN 15 mg/dL (7-17); CARBON DIOXIDE 26 mmol/L (22-30); GFR AFRICAN-AMERICAN > 60; GLUCOSE,RANDOM 97 mg/dL (65-105); TOTAL PROTEIN 7.9 g/dL (6.3-8.3)
[2016-12-08 07:57] LABS: ALT/SGPT 91 U/L (9-52); CALCIUM 9.6 mg/dl (8.6-10.4); MAGNESIUM 2.4 mg/dL (1.6-2.3)
--- NOTE | 2016-12-08 08:58 | CP.PCM.PCO ---
Physician Communication Note - Physician Communication Note Physician Communication Note: Packing removed. Clear for D/C from surgery. Wound care instr. given
[2016-12-08] MEDS: Lactobacillus Acidophilus 500 MU Cap PO SCH ×2 (10:29→17:51)
[2016-12-08] MEDS: Mupirocin 2% Ointment (NASAL) NAS SCH ×2 (10:31→17:52)
[2016-12-08] MEDS ORDERED: Pneumococcal 23-Valent Vaccine IM ONE (13:00)
--- NOTE | 2016-12-08 15:17 | OP ---
PROCEDURE DATE: 12/05/2016 PREOPERATIVE DIAGNOSIS: Left arm abscess and cellulitis. POSTOPERATIVE DIAGNOSIS: Left arm abscess and cellulitis. PROCEDURE DONE: Incision and drainage of left arm abscess. SURGEON: Nicolas Doran MD WEIGHT LOSS COUNSELOR: Kevin Chang, PGY-2 resident. ANESTHESIA: Local anesthesia. ESTIMATED BLOOD LOSS: Around 2 mL. DRAINS: None. PATHOLOGY: The pus was sent for the culture and sensitivity. COMPLICATIONS: None. INTRAOPERATIVE FINDINGS: The patient had approximately 2 cm x 2 cm abscess of left arm. INTRAOPERATIVE STEPS: This 26-year-old female was diagnosed with a left arm abscess and patient was consented for incision and drainage. The left arm was prepped and draped and incision was made trans versely of 2 cm size and the abscess cavity was drained, irrigated and packed with iodoform packing a nd dry sterile dressing was applied. The patient tolerated the procedure well. Count of instruments and gauze was correct. Nicolas Doran MD cc: [id number] TT: 12/08/2016 15:17:21 vt
[2016-12-08 16:44] VITALS: BP 111/70; PULSE 90; TEMP 98.2; O2SAT 97
--- NOTE | 2016-12-08 18:47 | CP.PCM.DIS ---
<HansaKady - Last Filed: 12/08/16 18:44> Provider - Provider Date of Admission: 12/04/16 19:26 Attending physician: Jona Loaiza MD Primary care physician: none Consults: Surgery - Dr. Doran ID - Dr. Serrato Time Spent in preparation of Discharge (in minutes): 31 Diagnosis - Discharge Diagnosis (1) Cellulitis Status: Acute (2) Elevated LFTs Status: Acute (3) Thrombocytosis Status: Acute Hospital Course - Lab Results Lab Results: Most Recent Lab Values WBC 8.5 K/uL (4.8-10.8) 12/08/16 07:28 RBC 4.24 Mil/uL (3.80-5.20) 12/08/16 07:28 Hgb 12.5 g/dL (11.0-16.0) 12/08/16 07:28 Hct 37.5 % (34.0-47.0) 12/08/16 07:28 MCV 88.3 fL (81.0-99.0) 12/08/16 07:28 MCH 29.5 pg (27.0-31.0) 12/08/16 07:28 MCHC 33.4 g/dL (33.0-37.0) 12/08/16 07:28 RDW 12.9 % (11.5-14.5) 12/08/16 07:28 Plt Count 576 K/uL (130-400) H 12/08/16 07:28 MPV 7.3 fL (7.2-11.7) 12/08/16 07:28 Neut % (Auto) 60.2 % (50.0-75.0) 12/08/16 07:28 Lymph % (Auto) 32.5 % (20.0-40.0) 12/08/16 07:28 [place] % (Auto) 4.6 % (0.0-10.0) 12/08/16 07:28 Eos % (Auto) 2.0 % (0.0-4.0) 12/08/16 07:28 Baso % (Auto) 0.7 % (0.0-2.0) 12/08/16 07:28 Neut # 5.1 K/uL (1.8-7.0) 12/08/16 07:28 Lymph # 2.7 K/uL (1.0-4.3) 12/08/16 07:28 Knox # 0.4 K/uL (0.0-0.8) 12/08/16 07:28 Eos # 0.2 K/uL (0.0-0.7) 12/08/16 07:28 Baso # 0.1 K/uL (0.0-0.2) 12/08/16 07:28 Differential Comment 12/03/16 13:04 Sodium 141 mmol/L (132-148) 12/08/16 07:28 Potassium 4.3 mmol/L (3.6-5.2) 12/08/16 07:28 Chloride 103 mmol/L (98-107) 12/08/16 07:28 Carbon Dioxide 26 mmol/L (22-30) 12/08/16 07:28 Anion Gap 16 (10-20) 12/08/16 07:28 BUN 15 mg/dL (7-17) 12/08/16 07:28 Creatinine 0.7 MG/DL (0.7-1.2) 12/08/16 07:28 Est GFR ( Amer) > 60 12/08/16 07:28 Est GFR (Non-Af Amer) > 60 12/08/16 07:28 POC Glucose (mg/dL) 143 mg/dL (65-110) H 12/08/16 11:17 Random Glucose 97 mg/dL (65-105) 12/08/16 07:28 Hemoglobin A1c 6.0 % (4.2-6.5) 12/08/16 07:29 Calcium 9.6 mg/dl (8.6-10.4) 12/08/16 07:28 Phosphorus 4.9 mg/dL (2.5-4.5) H 12/04/16 06:03 Magnesium 2.4 mg/dL (1.6-2.3) H 12/08/16 07:28 Total Bilirubin 0.6 mg/dL (0.2-1.3) 12/08/16 07:28 AST 69 U/L (14-36) H D 12/08/16 07:28 ALT 91 U/L (9-52) H D 12/08/16 07:28 Alkaline Phosphatase 70 U/L (38-126) 12/08/16 07:28 Total Protein 7.9 g/dL (6.3-8.3) 12/08/16 07:28 Albumin 4.2 g/dL (3.5-5.0) 12/08/16 07:28 Globulin 3.8 gm/dL (2.2-3.9) 12/08/16 07:28 Albumin/Globulin Ratio 1.1 (1.0-2.1) 12/08/16 07:28 Urine Color Yellow (YELLOW) 12/03/16 17:30 Urine Clarity Hazy (Clear) 12/03/16 17:30 Urine pH 5.0 (5.0-8.0) 12/03/16 17:30 Ur Specific [place] 1.018 (1.003-1.030) 12/03/16 17:30 Urine Protein Negative mg/dL (NEGATIVE) 12/03/16 17:30 Urine Glucose (UA) Normal mg/dL (Normal) 12/03/16 17:30 Urine Ketones Negative mg/dL (NEGATIVE) 12/03/16 17:30 Urine Blood Negative (NEGATIVE) 12/03/16 17:30 Urine Nitrate Negative (NEGATIVE) 12/03/16 17:30 Urine Bilirubin Negative (NEGATIVE) 12/03/16 17:30 Urine Urobilinogen Normal mg/dL (0.2-1.0) 12/03/16 17:30 Ur Leukocyte Esterase Neg Brody/uL (Negative) 12/03/16 17:30 Urine WBC (Auto) 3 /hpf (0-5) 12/03/16 17:30 Urine RBC (Auto) 4 /hpf (0-3) H 12/03/16 17:30 Ur Squamous Epith Cells 16 /hpf (0-5) H 12/03/16 17:30 Urine Bacteria Rare (<OCC) 12/03/16 17:30 Hepatitis A IgM Ab Negative (NEGATIVE) 12/04/16 06:03 Hep Bs Antigen Negative (NEGATIVE) 12/04/16 06:03 Hep B Core IgM Ab Negative (NEGATIVE) 12/04/16 06:03 Hepatitis C Antibody Negative (NEGATIVE) 12/04/16 06:03 - Hospital Course Hospital Course: On admission: " Infected pimple" HPI: Patient is a 26 year old female with no significant medical history is presents to the ED with worsening pain in her left arm for a infected pimple. She was seen by a clinic physician in [place] who prescribed her Augmentin last Sunday for an infected pimple after she popped it. She noticed that her pain worsened and there was more puss and drainage from the wound over the past several days. She came here because she said the pain was unbearable and Tylenol and Motrin was no longer effective. She was also complaining of fever the past week with the highest of 102 which she measured at home. She also say she has some nausea and 1-2 episodes of vomiting after she brushed her teeth and also a loss of appetite but no abdominal pain. She denies changes in vision , hearing, chest pain, palpitations, shortness of breath, coughing wheezing, chest tightness, dysuria, diarrhea, heart burn, depression, anxiety, fatigue, numbness tingling, muscle weakness, joint pain or swelling. PMH: see above PSH: denies FH: denies SH: Lives with , denies smoking, etoh use, or illicit druge use, is unemployed PMD: none Allergies: NKDA During hospitalization: (1) Cellulitis Assessment and Plan: No leukocytosis, afebrile Vancomycin increased to 1200 mg IVPB Q12h per ID, Dr. Serrato. ID, Dr. Serrato, consulted. Plans to evaluate patient today. Patient started on Clindamycin 300 mg po TID (12/07/16) Packing removed by surgery on 12/08/16 General surgery, Dr. Doran consulted. Bedside I&D performed (12/05/16). Dressing c/d/i Wound culture L Arm: Methicillin resistant S. aureus. Blood cx negative I&D performed in ED X-ray of left humerus: Soft tissue swelling and reticulation seen within the lateral soft tissues at the level of the mid humerus. Mild increased radiopaque density at that level may be related to external bandage. No discrete radiopaque density noted to suggest for foreign body; however, evaluation is somewhat limited as there are some probable external bandages at that level. Status: Acute (2) Elevated LFTs Assessment and Plan: AST/ALT: 43/68 Hepatitis panel negative Abdominal ultrasound: 1. Diffuse increased echogenicity in the liver may reflect hepatic steatosis however parenchymal infectious/ inflammatory etiologies cannot be entirely excluded. Clinical and laboratory correlation is advised. 2. Gallbladder polyps. Monitor Status: Acute (3) Thrombocytosis Assessment and Plan: May be secondary to infection Platelet count 598 Monitor Status: Acute (4) Prophylactic measure Assessment and Plan: Heparin 5000 units SC q12h, SCDS Pepcid 20mg bid. - Date & Time of H&P Date of H&P: 12/03/16 Time of H&P: 15:34 Discharge Exam - Head Exam Head Exam: ATRAUMATIC, NORMAL INSPECTION, NORMOCEPHALIC - Eye Exam Eye Exam: EOMI, Normal appearance, PERRL Pupil Exam: PERRL - ENT Exam ENT Exam: Mucous Membranes Moist, Normal Exam - Neck Exam Neck exam: Full Rom, Normal Inspection - Respiratory Exam Respiratory Exam: Clear to PA & Lateral, NORMAL BREATHING PATTERN - Cardiovascular Exam Cardiovascular Exam: +S1, +S2. absent: Bradycardia, Tachycardia - GI/Abdominal Exam GI & Abdominal Exam: Normal Bowel Sounds, Unremarkable. absent: Distended, Firm - Extremities Exam Extremities exam: full ROM, normal capillary refill, normal inspection, pedal pulses present - Back Exam Back exam: absent: tenderness - Neurological Exam Neurological exam: Alert, CN II-XII Intact, Normal Gait, Oriented x3 - Psychiatric Exam Psychiatric exam: Normal Affect, Normal Mood - Skin Skin Exam: Intact, Normal Color, Warm Discharge Plan - Discharge Medications Prescriptions: Clindamycin [Cleocin] 300 mg PO TID #21 cap Mupirocin 2% Nasal [Bactroban 2% Nasal] 0.5 gm KIKI BID #0.25 gm - Follow Up Plan Condition: STABLE Disposition: HOME/ ROUTINE Instructions: Clindamycin (By mouth), Mupirocin (Into the nose), Cellulitis (DC ), Preventing Infections (GEN), Wound Healing and Your Diet (DC) Additional Instructions: Patient medically stable for discharge. Patient instructed to take the following new medication: Clindamycin 300 mg by mouth three times daily for 7 days (total of 21 pills) . Mupirocen 2% Nasal twice daily for 7 days Patient instructed to establish care and follow-up in the [facility] within two weeks. Phone number is [phone]. Patient instructed to return to the emergency department if symptoms recur. Patient given detailed instructions at bedside. Patient understands and agrees. <Juan Prasad H - Last Filed: 12/09/16 08:09> Provider - Provider Date of Admission: 12/04/16 19:26 Attending physician: Jona Loaiza MD Hospital Course - Lab Results Lab Results: Most Recent Lab Values WBC 8.5 K/uL (4.8-10.8) 12/08/16 07:28 RBC 4.24 Mil/uL (3.80-5.20) 12/08/16 07:28 Hgb 12.5 g/dL (11.0-16.0) 12/08/16 07:28 Hct 37.5 % (34.0-47.0) 12/08/16 07:28 MCV 88.3 fL (81.0-99.0) 12/08/16 07:28 MCH 29.5 pg (27.0-31.0) 12/08/16 07:28 MCHC 33.4 g/dL (33.0-37.0) 12/08/16 07:28 RDW 12.9 % (11.5-14.5) 12/08/16 07:28 Plt Count 576 K/uL (130-400) H 12/08/16 07:28 MPV 7.3 fL (7.2-11.7) 12/08/16 07:28 Neut % (Auto) 60.2 % (50.0-75.0) 12/08/16 07:28 Lymph % (Auto) 32.5 % (20.0-40.0) 12/08/16 07:28 Knox % (Auto) 4.6 % (0.0-10.0) 12/08/16 07:28 Eos % (Auto) 2.0 % (0.0-4.0) 12/08/16 07:28 Baso % (Auto) 0.7 % (0.0-2.0) 12/08/16 07:28 Neut # 5.1 K/uL (1.8-7.0) 12/08/16 07:28 Lymph # 2.7 K/uL (1.0-4.3) 12/08/16 07:28 Knox # 0.4 K/uL (0.0-0.8) 12/08/16 07:28 Eos # 0.2 K/uL (0.0-0.7) 12/08/16 07:28 Baso # 0.1 K/uL (0.0-0.2) 12/08/16 07:28 Differential Comment 12/03/16 13:04 Sodium 141 mmol/L (132-148) 12/08/16 07:28 Potassium 4.3 mmol/L (3.6-5.2) 12/08/16 07:28 Chloride 103 mmol/L (98-107) 12/08/16 07:28 Carbon Dioxide 26 mmol/L (22-30) 12/08/16 07:28 Anion Gap 16 (10-20) 12/08/16 07:28 BUN 15 mg/dL (7-17) 12/08/16 07:28 Creatinine 0.7 MG/DL (0.7-1.2) 12/08/16 07:28 Est GFR ( Amer) > 60 12/08/16 07:28 Est GFR (Non-Af Amer) > 60 12/08/16 07:28 POC Glucose (mg/dL) 143 mg/dL (65-110) H 12/08/16 11:17 Random Glucose 97 mg/dL (65-105) 12/08/16 07:28 Hemoglobin A1c 6.0 % (4.2-6.5) 12/08/16 07:29 Calcium 9.6 mg/dl (8.6-10.4) 12/08/16 07:28 Phosphorus 4.9 mg/dL (2.5-4.5) H 12/04/16 06:03 Magnesium 2.4 mg/dL (1.6-2.3) H 12/08/16 07:28 Total Bilirubin 0.6 mg/dL (0.2-1.3) 12/08/16 07:28 AST 69 U/L (14-36) H D 12/08/16 07:28 ALT 91 U/L (9-52) H D 12/08/16 07:28 Alkaline Phosphatase 70 U/L (38-126) 12/08/16 07:28 Total Protein 7.9 g/dL (6.3-8.3) 12/08/16 07:28 Albumin 4.2 g/dL (3.5-5.0) 12/08/16 07:28 Globulin 3.8 gm/dL (2.2-3.9) 12/08/16 07:28 Albumin/Globulin Ratio 1.1 (1.0-2.1) 12/08/16 07:28 Urine Color Yellow (YELLOW) 12/03/16 17:30 Urine Clarity Hazy (Clear) 12/03/16 17:30 Urine pH 5.0 (5.0-8.0) 12/03/16 17:30 Ur Specific [place] 1.018 (1.003-1.030) 12/03/16 17:30 Urine Protein Negative mg/dL (NEGATIVE) 12/03/16 17:30 Urine Glucose (UA) Normal mg/dL (Normal) 12/03/16 17:30 Urine Ketones Negative mg/dL (NEGATIVE) 12/03/16 17:30 Urine Blood Negative (NEGATIVE) 12/03/16 17:30 Urine Nitrate Negative (NEGATIVE) 12/03/16 17:30 Urine Bilirubin Negative (NEGATIVE) 12/03/16 17:30 Urine Urobilinogen Normal mg/dL (0.2-1.0) 12/03/16 17:30 Ur Leukocyte Esterase Neg Brody/uL (Negative) 12/03/16 17:30 Urine WBC (Auto) 3 /hpf (0-5) 12/03/16 17:30 Urine RBC (Auto) 4 /hpf (0-3) H 12/03/16 17:30 Ur Squamous Epith Cells 16 /hpf (0-5) H 12/03/16 17:30 Urine Bacteria Rare (<OCC) 12/03/16 17:30 Hepatitis A IgM Ab Negative (NEGATIVE) 12/04/16 06:03 Hep Bs Antigen Negative (NEGATIVE) 12/04/16 06:03 Hep B Core IgM Ab Negative (NEGATIVE) 12/04/16 06:03 Hepatitis C Antibody Negative (NEGATIVE) 12/04/16 06:03 Attending/Attestation - Attestation I have personally seen and examined this patient.: Yes I have fully participated in the care of the patient.: Yes I have reviewed all pertinent clinical information, including history, physical exam and plan: Yes Notes (Text): Medical attending: Patient was seen and examined by me, agree with the above note by dental assistant medical assistant. The patient will need to continue with oral anti-biotics for several more days. The wound packing had been removed. The patient reports that she's feeling very well, she's tolerating her diet going to the bathroom okay she's able to ambulate without assistance. She is not having any fevers and is not short of breath. Her arm she says feels okay area and she is able to flex and extend her elbow she does not have any shoulder pain. Thank you very much, Juan Prasad
== END 2016-12-08 19:41 | disposition home or self-care (01) | DRG 278 ==
LOC: C.ER 11:15 → INTOOBSV 14:16 → C.9E 14:16 → C.3T 14:57 → OBSVTOIN 12-04 19:26 → C.5T 12-05 21:18
PROVIDERS: ADMIT Internal Medicine; ATTEND Internal Medicine
PROC: 0H9CXZZ Drainage of Left Upper Arm Skin, External Approach (ICD-10-PCS; principal; 2016-12-04)
DX: L02.414 Cutaneous abscess of left upper limb (principal); B95.62 Methicillin resistant Staphylococcus aureus infection as the cause of diseases classified elsewhere; L03.114 Cellulitis of left upper limb; R79.89 Other specified abnormal findings of blood chemistry; Z87.891 Personal history of nicotine dependence; K82.4 Cholesterolosis of gallbladder